=== PATIENT | male | born 1955 | race Two or more races ===

== ENCOUNTER 2020-04-07 09:20 | Outpatient (CLI) | payer MEDICAID ==
[~2020-04-07] VITALS: Ht 167.6 cm; Wt 82.1 kg
[2020-04-07 09:35] VITALS: BP 118/83
[2020-04-07] MEDS ORDERED: AMLODIPINE BESYL5 MG ORAL (09:36)
[2020-04-07] MEDS ORDERED: ATORVASTATIN CA10 MG ORAL (09:36)
[2020-04-07] MEDS ORDERED: OMEPRAZOLE20 M2 ORAL (09:36)
--- NOTE | 2020-04-07 15:15 | Consultation ---
DATE OF CONSULTATION: 04/07/2020 GASTROLOGY CONSULTATION CHIEF COMPLAINT: Referral for colonoscopy, endoscopy, and also abnormal liver function tests. PAST MEDICAL HISTORY: 1. BPH. 2. History of hypertension. 3. Hyperglycemia. 4. Depression. 5. GERD. 6. Peptic ulcer disease. 7. Abnormal liver function tests. PAST SURGICAL HISTORY: Prostate surgery, liver biopsy. MEDICATIONS: Please see medication reconciliation list. FAMILY HISTORY: Father had colon cancer at age 73. SOCIAL HISTORY: The patient drinks beer once a week. Denies any tobacco or drug abuse. ALLERGIES: Codeine. REVIEW OF SYSTEMS: Positive for abdominal pain, GERD, bloating, constipation, dysphagia. PHYSICAL EXAMINATION: VITAL SIGNS: Temperature 97.7, pulse 63, respirations 20, blood pressure is 118/83. HEENT: Normocephalic and atraumatic. Sclerae anicteric. NECK: Supple. No evidence of obvious lymphadenopathy. CARDIOVASCULAR: Regular rate and rhythm. Plus S1-S2. LUNGS: Clear to auscultation bilaterally. ABDOMEN: Positive bowel sounds. Soft, nontender. No rebound. No guarding. No peritoneal sign. EXTREMITIES: No cyanosis, no clubbing, no edema. ASSESSMENT AND PLAN: This is a 64-year-old male with history of chronic GERD, now with solid dysphagia, needs endoscopy. Also needs a colonoscopy given family history of colon cancer, so we are going to schedule for both when authorization is obtained. In terms of abnormal liver function tests, most probably secondary to secondary to atorvastatin, we will recommend repeat liver function tests, which we ordered. Given chronic PPI use, we will check magnesium and B12. Manuelito Enrique M.D. DR: ASTON JOB#: [id number] CC:
== END 2020-04-07 11:20 | disposition home or self-care (01) ==
LOC: PAN 09:20
DX: K21.9 Gastro-esophageal reflux disease without esophagitis (principal); I10 Essential (primary) hypertension; F32.9 Major depressive disorder, single episode, unspecified; Z87.11 Personal history of peptic ulcer disease; R94.5 Abnormal results of liver function studies; Z88.6 Allergy status to analgesic agent; R14.0 Abdominal distension (gaseous); K59.00 Constipation, unspecified; R13.10 Dysphagia, unspecified; Z80.0 Family history of malignant neoplasm of digestive organs
CPT/HCPCS: G0463